=== PATIENT | female | born 2000 | race Caucasian/White ===

== ENCOUNTER 2020-09-10 02:33 | Emergency (ER) | payer OTHER, SELFPAY ==
--- NOTE | ~2020-09-10 | XR_ITS ---
EXAMINATION: XR shoulder LT min 2V DATE: 09/10/2020 03:12 INDICATION: Shoulder pain after pushing boxes. TECHNIQUE: AP internally and externally rotated, AP oblique externally rotated and transscapular Y vi ews of the left shoulder were obtained. COMPARISON: None FINDINGS: Normal alignment. No fracture. Glenohumeral joint is normal. Acromioclavicular joint is normal. Soft tissues are unremarkable. IMPRESSION: Negative left shoulder radiographs. Reviewed, dictated and finalized at location A. CONDITIONING COIL ASSEMBLER
--- NOTE | ~2020-09-10 | XR_ITS ---
EXAMINATION: XR thoracic spine 3V DATE: 09/10/2020 03:12 INDICATION: Back pain after pushing a box. TECHNIQUE: One AP, lateral and lateral swimmer's views of the thoracic spine were obtained. COMPARISON: 04/02/2011 FINDINGS: 20 degrees thoracic dextroscoliosis measured between T2 and T11. Partially visualized lumbar levoroto scoliosis. Vertebral body heights are normal. Mild disc height loss at a few levels in the midthoraci c spine. Lungs are clear. No pulmonary edema, pleural effusion or pneumothorax. Cardiomediastinal keny houette is normal. IMPRESSION: 1. Mild S-shaped thoracolumbar scoliosis with minimal midthoracic spondylosis. Reviewed, dictated and finalized at location A. ICAL SECURITY SPECIALIST
[2020-09-10 02:42] VITALS: BP 108/73; PULSE 59; RESP 18; TEMP 36.7; O2SAT 100
--- NOTE | 2020-09-10 03:21 | ED.GENADULT ---
HPI - General Adult General Chief complaint: Back Pain/Injury Stated complaint: back injury Time Seen by Provider: 09/10/20 02:39 History of Present Illness HPI narrative: Patient is a 20-year-old female who presents the emergency department with chief complaint of the left shoulder and back pain. Patient reports that she was at work and was pushing a box when suddenly she felt a strain in her left shoulder and then felt a spasm in her thoracic area of her back on the left side. Patient states the pain is sharp states is worse with movement and improved with rest. Patient denies numbness or tingling denies focal neurological deficit reports that she took 600 mg of ibuprofen prior to arrival. Related Data Allergies Allergy/AdvReac Type Severity Reaction Status Date / Time hydromorphone Allergy Unknown Hives Verified 09/10/20 02:45 latex Allergy Unknown Hives Verified 09/10/20 02:44 Review of Systems Review of Systems: Narrative: A 10 system review of systems was completed on the patient and is negative except for what is stated in the HPI. Nursing and ancillary documentation was reviewed. PMFSH Family History Family History Grandparent Depression Family history of glaucoma Hypertension Family history of elevated blood lipids Family history of cardiovascular disease Mother Family history of bipolar disorder Social History Social History Smoking status: Never smoker Second hand tobacco smoke exposure: No Alcohol intake: never Gender identity (if verbalized by the patient): Female Comments Patient reports no significant past medical history Exam Narrative: Exam Narrative: GENERAL: Well-appearing, well-nourished, and in no acute distress. HEAD: Normocephalic, atraumatic. EYES: PERRLA and EOMI. ENT: Nares clear, no rhinorrhea or epistaxis. Mucous membranes moist. NECK: Supple. CHEST: Clear to auscultation. No respiratory distress. HEART: Regular rate and rhythm. No murmur heard. Normal peripheral pulses. ABDOMEN: Soft, nontender, nondistended, normal active bowel sounds. EXTREMITIES: Normal range of motion. No edema. SKIN: Warm, dry, no rash. NEURO: No focal deficits. Alert and oriented x3. PSYCH: Normal mood and affect. Back: There is tenderness to palpation in the thoracic paraspinous muscles at the level of the scapula Course Course Emergency Course: Plain film x-rays of the left shoulder and thoracic spine showed no evidence of fracture. Vital Signs Vital signs: Vital Signs Temperature 36.7 C 09/10/20 02:42 Pulse Rate 59 L 09/10/20 02:42 Respiratory Rate 18 09/10/20 02:42 Blood Pressure 108/73 09/10/20 02:42 Pulse Oximetry 100 09/10/20 02:42 Temperature 36.7 C 09/10/20 02:42 Pulse Rate 59 L 09/10/20 02:42 Respiratory Rate 18 09/10/20 02:42 Blood Pressure 108/73 09/10/20 02:42 Pulse Oximetry 100 09/10/20 02:42 Medical Decision Making Vital Signs Vital Signs: Vital Signs Temperature 36.7 C 09/10/20 02:42 Pulse Rate 59 L 09/10/20 02:42 Respiratory Rate 18 09/10/20 02:42 Blood Pressure 108/73 09/10/20 02:42 Pulse Oximetry 100 09/10/20 02:42 Temperature 36.7 C 09/10/20 02:42 Pulse Rate 59 L 09/10/20 02:42 Respiratory Rate 18 09/10/20 02:42 Blood Pressure 108/73 09/10/20 02:42 Pulse Oximetry 100 09/10/20 02:42 Discharge Plan Discharge Clinical Impression: Acute thoracic myofascial strain Qualifiers: Encounter type: initial encounter Qualified Code(s): S29.019A - Strain of muscle and tendon of unspecified wall of thorax, initial encounter Left shoulder strain Qualifiers: Encounter type: initial encounter Qualified Code(s): S46.912A - Strain of unspecified muscle, fascia and tendon at shoulder and upper arm level, left arm, initial encounter Patient Disposition: Home, Self-Care Con
[2020-09-10] MEDS: CYCLOBENZAPRINE HCL 10 MG TABLET PO (03:37)
[2020-09-10 03:41] VITALS: BP 105/76; PULSE 68; RESP 18; TEMP 36.3; O2SAT 99
== END 2020-09-10 03:43 | disposition home or self-care (01) ==
PROVIDERS: Emergency Provider Emergency Medicine
DX: S29.012A Strain of muscle and tendon of back wall of thorax, initial encounter (principal); X50.0XXA Overexertion from strenuous movement or load, initial encounter; S46.912A Strain of unspecified muscle, fascia and tendon at shoulder and upper arm level, left arm, initial encounter
CPT/HCPCS: 72072; 73030; 99284; A9270

== ENCOUNTER 2022-07-27 18:34 | Emergency (ER) | payer SELFPAY ==
--- NOTE | ~2022-07-27 | XR_ITS ---
EXAMINATION: XR knee RT min 4V DATE: 07/27/2022 19:06 INDICATION: Right knee pain TECHNIQUE: Five views of the right knee were obtained. COMPARISON: 01/17/2019 FINDINGS: Alignment is normal. No fracture or osteochondral lesion. Joint spaces are normal with no e rosions. No joint effusion/synovitis. Soft tissues are unremarkable. IMPRESSION: 1. No acute osseous abnormality. Reviewed, dictated and finalized at location F. CER OPERATOR
[2022-07-27 18:38] VITALS: BP 129/77; PULSE 104; RESP 14; TEMP 36.7; O2SAT 100
--- NOTE | 2022-07-27 18:38 | ED.LOWEXIN ---
HPI - Extremity Injury (Lower) General Chief Complaint: Extremity Injury, Lower Stated Complaint: Right Knee Injury Time Seen by Provider: 07/27/22 18:38 Source: patient and RN notes reviewed History of Present Illness HPI Narrative: Patient is a 22-year-old female who presents to the Urgent Care with complaints of right knee pain. Patient states that she had it on a car frame a working on a car on Wednesday. Patient states that is more painful to bear weight or flex the knee. Patient has been using ibuprofen, heat, ice and Tylenol. No other acute complaints. No acute distress noted. Patient aware of the plan of care. Some parts of this dictation were generated by voice recognition software and may contain typographical and/or grammatical inaccuracies. Related Data Home Medications Medication Instructions Recorded Confirmed No Home Medications 07/27/22 07/27/22 Allergies Allergy/AdvReac Type Severity Reaction Status Date / Time hydromorphone Allergy Unknown Hives Verified 07/27/22 19:09 latex Allergy Unknown Hives Verified 07/27/22 19:09 Review of Systems Review of Systems: CONSTITUTIONAL: Denies fever, chills, or sweats. EYES: Denies visual changes, redness, or discharge. ENT: Denies rhinorrhea, congestion, sore throat, or otalgia. CARDIOVASCULAR: Denies chest pain, palpitations, or edema. RESPIRATORY: Denies cough or dyspnea. GASTROINTESTINAL: Denies abdominal pain, nausea, vomiting, or diarrhea. GENITOURINARY: Denies dysuria or hematuria. SKIN: Denies rash or itching. MUSCULOSKELETAL: Reports of right knee pain NEUROLOGIC: Denies headache, numbness, or weakness. All other systems reviewed are negative, except as documented in HPI. [facility] Family History Family History Grandparent Depression Family history of glaucoma Hypertension Family history of elevated blood lipids Family history of cardiovascular disease Mother Family history of bipolar disorder Social History Social History Smoking status: Never smoker Second hand tobacco smoke exposure: No Alcohol intake: never Gender identity (if verbalized by the patient): Female Comments At the time of my signature, I reviewed and agree with the nursing past medical, surgical, social, and family history. There is no relevant family history pertinent to the patient complaint. Exam Narrative: GENERAL: This is a well-nourished, well-developed patient, in no apparent distress. HEAD: normocephalic, atraumatic. EYES: PERRL. Sclera clear/white. Vision is grossly intact. EARS: External ears normal NOSE: External nose normal with no obvious nasal discharge, nares without redness, no rhinorrhea. THROAT: Mucous membranes moist NECK: Neck supple SKIN: warm, intact with no suspicious lesions or rash, good texture and turgor. NEURO: awake, alert, and oriented to person, place and time. There were no obvious focal neurologic abnormalities. EXTREMITIES: range of motion the right lower extremity within normal limits due to pain. Mild posterior knee pain with moderate anterior knee tenderness with palpation. No obvious edema, ecchymosis or erythema to the right knee. Positive strong right pedal pulse with capillary refill less than 2 seconds. Course Course Level of Care: Express Care Visit Vital Signs Vital signs: Vital Signs Temperature 98.0 F 07/27/22 18:38 Pulse Rate 104 H 07/27/22 18:38 Respiratory Rate 14 07/27/22 18:38 Blood Pressure 129/77 07/27/22 18:38 Pulse Oximetry 100 07/27/22 18:38 Oxygen Delivery Room Air 07/27/22 18:38 Temperature 98.0 F 07/27/22 18:38 Pulse Rate 104 H 07/27/22 18:38 Respiratory Rate 14 07/27/22 18:38 Blood Pressure 129/77 07/27/22 18:38 Pulse Oximetry 100 07/27/22 18:38 Oxygen Delivery Room Air 07/27/22 18:38 Reviewed MDM - Extremity Injur
== END 2022-07-27 19:27 | disposition home or self-care (01) ==
PROVIDERS: Emergency Provider Nurse Practitioner Family
DX: S80.01XA Contusion of right knee, initial encounter (principal); W22.8XXA Striking against or struck by other objects, initial encounter; M41.9 Scoliosis, unspecified
CPT/HCPCS: 73564; 99213; G0463

== ENCOUNTER 2023-10-26 14:33 | Emergency (ER) | payer BC, SELFPAY ==
--- NOTE | 2023-10-26 14:40 | ED.URI ---
HPI - URI/Sore Throat General Chief Complaint: Upper Respiratory Infection Stated Complaint: Cough;Chest Congestion Time Seen by Provider: 10/26/23 14:54 Source: patient and RN notes reviewed Mode of arrival: ambulatory Limitations: no limitations History of Present Illness HPI Narrative: 23-year-old female presents with concern for cough for 3 weeks. Reports a few days ago she began having sore throat, nasal congestion, postnasal drainage. She reports she has been taking [id number]-[id number] medications without relief. Reports her family members have similar. MD elicited complaint: cough and sore throat Related Data Home Medications Medication Instructions Recorded Confirmed bupropion HCl 150 mg 24 hr tablet, 150 mg PO DAILY 10/26/23 10/26/23 extended release norethindrone 1 mg-e. estradiol 20 1 tablet PO DAILY 10/26/23 10/26/23 mcg (24)-iron 75 mg (4) chew tablet (Liana 24 Fe) Allergies Allergy/AdvReac Type Severity Reaction Status Date / Time hydromorphone Allergy Unknown Hives Verified 10/26/23 14:39 latex Allergy Unknown Hives Verified 10/26/23 14:39 Review of Systems Review of Systems: CONSTITUTIONAL: Denies malaise, chills, sweats, or fever. EYES: Denies visual changes, redness, or discharge. ENT: Reports rhinorrhea, congestion, and sore throat. CARDIOVASCULAR: Denies chest pain, palpitations, or edema. RESPIRATORY: Reports cough. Denies dyspnea. GASTROINTESTINAL: Denies abdominal pain, nausea, vomiting, diarrhea SKIN: Denies rash or itching. MUSCULOSKELETAL: Denies myalgia. NEUROLOGIC: Denies headache. All systems reviewed & are unremarkable except as noted in HPI and below PMFSH Family History Family History Grandparent Depression Family history of glaucoma Hypertension Family history of elevated blood lipids Family history of cardiovascular disease Mother Family history of bipolar disorder Social History Social History Smoking status: Never smoker Second hand tobacco smoke exposure: No Alcohol intake: never Gender identity (if verbalized by the patient): Female Comments At time of signature, agree with nursing past medical, surgical, social and family history. There is no relevant family history pertinent to the presenting complaint Exam Narrative: GENERAL: Well-appearing, well-nourished, and in no acute distress. HEAD: Normocephalic EYES: PERRLA, conjunctivae clear ENT: Nares clear, turbinates edematous and erythematous, clear discharge. Mucous membranes moist. TM pearly waddell with sharp light reflex bilaterally; no tragal tenderness. Oropharynx not erythematous without lesions. Tonsils not enlarged and without exudate, no drooling, no hoarseness, no trismus, uvula midline. NECK: Supple. No lymphadenopathy CHEST: Clear to auscultation, breath sounds equal. No wheezing, rhonchi, rales, or stridor. No respiratory distress, speaks in full sentences. HEART: Regular rate and rhythm. No murmur heard. SKIN: Warm, dry, no rash. NEURO: Alert and oriented x3. PSYCH: Normal mood and affect Course Course Emergency Course: Patient is aware of diagnosis, understands and agrees to treatment plan. Anticipatory guidance given. Patient agrees to follow-up as directed and is aware of reasons to seek care at the emergency department. Portions of this record may have been created with voice recognition software Level of Care: Express Care Visit Vital Signs Vital signs: Reviewed. MDM - URI/Sore Throat MDM Narrative Medical decision making narrative: Differential diagnosis considered: Perry virus, strep pharyngitis, allergic rhinitis, upper respiratory tract infection, sinusitis, rhinosinusitis, nasopharyngitis. viral pharyngitis, otitis media, otitis externa, pneumonia, bronchitis, viral cough syndrome, viral syndrome, and influenza. Exam findings show
[2023-10-26 14:42] VITALS: BP 120/86; PULSE 118; RESP 16; TEMP 36.9; O2SAT 100
[2023-10-26 14:49] VITALS: BP 120/86; PULSE 118; RESP 16; TEMP 36.9; O2SAT 100
== END 2023-10-26 15:05 | disposition home or self-care (01) ==
PROVIDERS: Emergency Provider Nurse Practitioner
DX: J40 Bronchitis, not specified as acute or chronic (principal); Z79.899 Other long term (current) drug therapy; Z20.822 Contact with and (suspected) exposure to COVID-19
CPT/HCPCS: 87081; 87426; 87804; 87880; 99213; G0463

== ENCOUNTER 2024-06-20 12:33 | Emergency (ER) | payer BC, SELFPAY ==
[2024-06-20 12:40] VITALS: BP 129/76; PULSE 109; RESP 16; TEMP 36.6; O2SAT 100
--- NOTE | 2024-06-20 12:45 | ED.LOWEXIN ---
HPI - Extremity Injury (Lower) General Chief Complaint: Extremity Injury, Lower Stated Complaint: Left Foot Injury Source: patient Mode of arrival: ambulatory Limitations: no limitations History of Present Illness HPI Narrative: 24 y/o female presented for c/o left foot pain after injury last night. States she jammed the foot into the wall while playing with her dog, and may have bent the toes backwards. pain is to the 3rd 4th and 5th toes towards the midfoot. Took ibuprofen last night. Denies deformity swelling, bruising, numbness, tingling or weakness. Related Data Home Medications Medication Instructions Recorded Confirmed No Home Medications 06/20/24 06/20/24 Allergies Allergy/AdvReac Type Severity Reaction Status Date / Time hydromorphone Allergy Unknown Hives Verified 06/20/24 12:41 latex Allergy Unknown Hives Verified 06/20/24 12:41 dimenhydrinate Allergy Rash Verified 06/20/24 13:00 [From Dramamine] Review of Systems Review of Systems: CONSTITUTIONAL: Denies body aches, fever, chills CARDIOVASCULAR: Denies chest pain, palpitations, or edema. RESPIRATORY: Denies cough or dyspnea. SKIN: Denies rash, bruising or wounds. MUSCULOSKELETAL: reports left foot pain NEUROLOGIC: Denies headache, numbness, tingling, or weakness. All systems reviewed & are unremarkable except as noted in HPI and below PMFSH Family History Family History Grandparent Depression Family history of glaucoma Hypertension Family history of elevated blood lipids Family history of cardiovascular disease Mother Family history of bipolar disorder Social History Social History Smoking status: Never smoker Second hand tobacco smoke exposure: No Alcohol intake: never Gender identity (if verbalized by the patient): Female Comments At time of signature, I have reviewed and agree with nursing past medical, surgical, social and family history unless otherwise noted. Please see nursing chart for further information. There is no relevant family history pertinent to the presenting complaint Exam Narrative: GENERAL: Well-appearing, well-nourished, and in no acute distress. CHEST: Speaks in full sentences. No respiratory distress. HEART: Regular rate and rhythm. Normal and equal peripheral pulses. EXTREMITIES: Left foot has normal strength and sensation, normal range of motion at ankle and toes, but endorses pain with movement. Tender with palpation over the midfoot. No swelling or ecchymosis, No open wounds, or obvious deformity; alignment normal, pulse palpable and equal bilaterally, skin warm, dry, pink. Capillary refill less than 3 seconds. SKIN: Warm, dry, no rash. NEURO: Alert and oriented x3. Course Course Emergency Course: Patient is aware of diagnosis, understands and agrees to treatment plan. Anticipatory guidance given. Patient agrees to follow-up as directed and is aware of reasons to seek care at the emergency department. Portions of this record may have been created with voice recognition software Level of Care: Express Care Visit Vital Signs Vital signs: Vital Signs Temperature 97.9 F 06/20/24 12:40 Pulse Rate 109 H 06/20/24 12:40 Respiratory Rate 16 06/20/24 12:40 Blood Pressure 129/76 06/20/24 12:40 Pulse Oximetry 100 06/20/24 12:40 Oxygen Delivery Room Air 06/20/24 12:40 Temperature 97.9 F 06/20/24 12:40 Pulse Rate 109 H 06/20/24 12:40 Respiratory Rate 16 06/20/24 12:40 Blood Pressure 129/76 06/20/24 12:40 Pulse Oximetry 100 06/20/24 12:40 Oxygen Delivery Room Air 06/20/24 12:40 Reviewed MDM - Extremity Injury (Lower) MDM Narrative Medical decision making narrative: Discussed physical exam findings and xray. RONALDO applied. Advised supportive measures and signs/symptoms to go to the ER. Pt is appropriate for outpt treatment and
== END 2024-06-20 13:17 | disposition home or self-care (01) ==
PROVIDERS: Emergency Provider Nurse Practitioner Family
DX: M79.672 Pain in left foot (principal)
CPT/HCPCS: 73630; 99213; G0463

== ENCOUNTER 2025-06-08 17:34 | Emergency (ER) | payer SELFPAY ==
--- OUTSIDE RECORDS SUMMARY | 2024-12-09 04:00 | XMS_ITS ---
Author Organization [facility] Address [address] [place] [address] Care Team Providers Care Manager Beauty Name Role Phone Adrián Louise Unavailable [phone] Migration, Provider Unavailable Unavailable REASON FOR VISIT EMR-Luis Encounters Encounter Location Date Provider Diagnosis [facility] [address] [place], [place] [id number] 12/09/2024 Prov ider Migration Plan Of Treatment No Information Progress Notes * VIOLETA DE LA CRUZDOB:2000 ([age] yo F)Acc No.[id number]:12/09/2024 Patient: VIOLETA MILLER :2000 A ge:24 Y S ex:Female Address:[address] [place], [address] Subjective: * Chief Complaints: * E MR-Luis * * Date:
--- OUTSIDE RECORDS SUMMARY | 2024-12-10 04:00 | XMS_ITS ---
Author Organization [facility] Address [address] [place] [address] Care Team Providers Care Marketing Developer Name Role Phone Adirán Louise Unavailable [phone] Migration, Provider Unavailable Unavailable Allergies Allergen (clinical [...] 1-20 MG-MCG(24) Tablet Chewable Oral *Reorder from [employer] for eRx and Interaction Alerts* 08/23/2023 Active [...] 01/05/2023 Encounters Encounter Location Date Provider Diagnosis [facility] [address] [place] [id number] 12/10/2024 Prov ider Migration Plan Of Treatment No Information Progress Notes * VIOLETA DE LA CRUZDOB:2000 ([age] yo F)Acc No.[id number]:12/10/2024 Patient: VIOLETA MILLER :2000 A ge:24 Y S ex:Female Address:[address] [place] [address] [place], [address] Subjective: * Chief Complaints: * E MR-Luis * Medical History: Problems: ultrasound scan status Anxiety Attention deficit hyperactivity disorder Bipolar disorder Depressive disorder Oligohydramnios Polyuria RhD negative * 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
--- OUTSIDE RECORDS SUMMARY | 2025-06-08 17:36 | XMS_ITS | Clinical Summary ---
Author Organization [facility] Address [address] [place] [address] Phone Care Team Providers Care Land Acquisition Manager Name Role Phone Unavailable Primary Care Provider Unavailabl e Allergies Active Allergy Reactions Criticality Noted Date Comments Dimenhydrinate Other (See Comments) 04/05/2023 Vomiting Latex Other (See Comments) High 11/06/2022 Throat closes when pt comes in contact with large amounts of latex. She had her entire leg wrapped with an geneva bandage and her throat closed Medications PNV no.133/ferrous fum/folic ( ORAL) Take by mouth. Active acetaminophen (TYLENOL) 325 mg tablet Take 2 Tablets (650 mg) by mouth every 6 hours as needed for Other (See Comment) (See admin instructions ). 30 Tablet 05/22/2023 Active ibuprofen (MOTRIN) 600 mg tablet Take 1 Tablet (600 mg) by mouth every 6 hours. 30 Tablet 05/22/2023 Active omeprazole (PriLOSEC) 40 mg Capsule, Delayed Release(E.C.) Take 1 Capsule (40 mg) by mouth daily. 30 Capsule 06/20/2023 Active Active Problems Problem Noted Date Diagnosed Date Encounter for elective induction of labor 2022 Decreased movements in third trimester Nausea and vomiting in 11/07/2022 Immunizations Immunization Administration Dates Next Due (ADACEL/BOOSTRIX)(10 YR UP) TDAP VACCINE, 0.5ML, IM 04/01/2011 (GARDASIL)(9-45 YRS) HUMAN PAPILLOMAVIRUS VACCINE, TYPES 6, 11, 16, 18, QUADRIVALENT (4VHPV), 3 DOSE, IM 11/02/2012,04/11/2012,04/01/2011 (INFANRIX)(6 WKS-6 YRS) DIPT HERIA, TETANUS TOXOIDS, AND ACCELLULAR PERTUSSIS VACCINE (DTAP), 0.5 ML IM 02/16/2005,09/09/2001,2000,05/07,2000 (IPOL)(6 WKS AND UP) POLIOVI LEILANI VACCINE, INACTIVATED (IPV), 3 DOSE, SUBCUT OR IM 02/16/2005,09/09/2001,2000,05/07 (M-M-R II/PRIORIX)(12 MO UP) MEASLES, MUMPS AND RUBELLA VIRUS VACCINE, 0.5 ML IM/SUBCUT 02/16/2005,06/07/2001 (MENACTRA)(9 MO-55 YR) MENIN GOCOCCAL POLYSACCHARIDE A, C, Y AND W-135 DIPTHERIA TOXOID CONJUGATE VACCINE, (PF), 0.5ML, IM 04/01/2011 (PEDVAXHIB)(2 - 71 MOS) HIB PRP-OMP VACCINE, 3 DOSE, 0.5 ML IM0] 09/09/2001,2000,2000,05/07 (RECOMBIVAX HB/ENGERIX-B)(0- 19 YRS) HEPATITIS B VACCINE 5 MCG/0.5 ML OR 10 MCG/0.5 ML PED OR ADOL 3 DOSE (PF), IM 03/02/2001,2000,2000 (VARIVAX)(12 MOS UP)VARICELL A VIRUS VACCINE (PF) 0.5 ML, SUB CUT 04/01/2011,06/07/2001 Hepatitis A Vaccine 04/11/2012,04/01/2011 Influenza, Unspecified Formulation 06/25/2013 Pneumococcal 7-valent conjug ate vaccine IM 09/09/2001,2000,2000,05/07 Family History Medical History Relation Name Comments Healthy Father Thyroid Disease Maternal Grandmother Healthy Mother Stroke Paternal Grandfather Relation Name Status Comments Father Alive Maternal Grandmother Mother Alive Paternal Grandfather Alive Social History Tobacco Use Types Packs/Day Years Used Date Smoking Tobacco: Never Smokeless Tobacco: Never Tobacco Cessation:Counseling Given: No Alcohol Use Standard Drinks/Week Comments Not Currently 0 (1 standard drink = 0.6 oz pur e alcohol) Feeling Safe Answer Date Recorded Are you in a relationship wi th someone who hurts you emotionally and/or physically? No 06/20/2023 Comments No Sex and Gender Information Value Date Recorded Sex Assigned at Not on file Legal Sex Female 5:14 PM CDT Gender Identity Not on file Sexual Orientation Not on file Last Filed Vital Signs Vital Sign Reading Time Taken Comments Blood Pressure 133/78 06/20/2023 11:30 PM CDT Pulse 95 06/20/2023 11:30 PM CDT Temperature 36.7 C (98 F) 06/20/2023 9:21 PM CDT Respiratory Rate 18 06/20/2023 11:30 PM CDT Oxygen Saturation 96% 06/20/2023 11:30 PM CDT Inhaled Oxygen Concentration - - Weight 61.2 kg (135 lb) 06/20/2023 9:21 PM CDT Height 176.5 cm (5' 9.5) 06/20/2023 9:21 PM CDT Body Mass Index 19.65 06/20/2023 9:21 PM CDT Plan of Treatment Health Maintenance Due Date Last Done Comments CERVICAL CANCER SCREENING 2021 HPV/Cotest (21-29) 2021 PAP SMEAR 2021 DTAP/TDAP/TD VACCINES (6 - T d or Tdap) 04/01/2021 04/01/2011, 02/16/2005, 09/09/2001, Additional history exists INFLUENZA VACCINE (#1) 2025 HEPATITIS B VACCINES Completed 03/02/2001, 2000, 2000 HPV VACCINES Completed 11/02/2012, 03/15, 04/01/2011 Advance Directives For more information, please contact: [phone] * Full Code (Latest Code Status on File) Date Activated Date Inactivated Comments 05/21/2023 4:42 PM 05/23/2023 1:48 PM * Full Code Date Activated Date Inactivated Comments 05/20/2023 7:36 PM 05/21/2023 4:42 PM * Full Code Date Activated Date Inactivated Comments 04/05/2023 9:03 PM 04/06/2023 2:08 PM * Full Code Date Activated Date Inactivated Comments 04/05/2023 2:06 PM 04/05/2023 9:02 PM * Full Code Date Activated Date Inactivated Comments 11/06/2022 10:45 PM 11/07/2022 4:41 AM
--- OUTSIDE RECORDS SUMMARY | 2025-06-08 17:36 | XMS_ITS | Patient Health Record ---
Author Organization [facility] Address [address] [place] [address] Care Team Providers Care Software Development Analyst Name Role Phone Adrián Louise Unavailable [phone] Migration, Provider Unavailable Unavailable Reason For Referral No Information Medications Medication SIG (Take, Route, Frequency, Duration) Notes Start Date End Date Status Ibuprofen 600 MG Tablet Oral 08/23/2023 Active Acetaminophen 325 MG Tablet Oral 08/23/2023 Active Liana 24 Fe 1-20 MG-MCG(24) Tablet Chewable Oral 08/23/2023 Active Minastrin 24 Fe 1-20 MG-MCG(24) Tablet Chewable Oral *Reorder from [employer] for eRx and Interaction Alerts* 08/23/2023 Active buPROPion HCl ER (XL) 150 MG Tablet Extended Release 24 Hour Oral 08/23/2023 Active RhoGAM Ultra-Filtered Plus 1500 UNIT Solution Prefilled Syringe Intramuscular 08/23/2023 Active Progesterone 200 MG Capsule Oral 08/23/2023 Active Prenatabs Rx 29-1 MG Tablet Oral 08/23/2023 Active Ondansetron 4 MG Tablet Disintegrating Oral 08/23/2023 Active Immunizations Vaccine Route Administration Date Status Comme nts Tdap Unknown 03/29/2023 Administered Source VFC Code: V00 - VFC eligibility not determined/unknown Social History Social History Additional Details Category Social Info Options Details Migrated Social History Migrated Social History Alcohol Intake: None 01/05/2023,Tobacco Years: Never smoker 01/05/2023 Problems Problem Type SNOMED Code ICD Code Onset Dates Problem Status W/U Status Risk Notes Problem Thyrotoxicosis (18358306) Thyrotoxicosis, unspecified without thyrotoxic crisis or storm (E05.90) 05/10/20 Active confirmed Problem Anxiety disorder (047717389) Other specified anxiety disorders (F41.8) 08/23/20 Active confirmed Problem Anxiety disorder (599781716) Anxiety disorder, unspecified (F41.9) 05/10/20 Active confirmed Problem Scoliosis (794833662) Scoliosis, unspecified (M41.9) 01/07/20 Active confirmed Problem Oligohydramnios, third trimester, not applicable or unspecified (O41.03X0) 05/10/20 Active confirmed Problem Blood group typing (11111257) Encounter for blood typing (Z01.83) 05/10/20 Active confirmed Problem Normal growth (250120742) Encounter for suspected problem with growth ruled out (Z03.74) 04/26/20 Active confirmed Problem Vaccination given (747988805) Encounter for immunization (Z23) 03/29/20 Active confirmed Problem Surveillance of contraception (249035559) Encounter for contraceptive management, unspecified (Z30.9) 06/30/20 Active confirmed Problem Patient currently (18559233) state, incidental (Z33.1) 05/07/20 Active confirmed Problem Primigravida (766664315) Encounter for supervision of normal first , second trimester (Z34.02) 02/04/20 Active confirmed Problem state of fetus, 2nd trimester (04964383) Encounter for supervision of normal , unspecified, second trimester (Z34.92) 05/10/20 Active confirmed Problem Gestation period, 32 weeks (0838173) 32 weeks gestation of (Z3A.32) 03/29/20 Active confirmed Problem Gestation period, 37 weeks (10728653) 37 weeks gestation of (Z3A.37) 05/10/20 Active confirmed Problem screening (341820006) Encounter for screening, unspecified (Z36.9) 02/04/20 Active confirmed Encounters Encounter Location Date Provider Diagnosis [facility] [address] [place], [place] [id number] 12/09/2024 Prov ider Migration [facility] [address] [facility] [place] [id number] 12/10/2024 Prov ider Migration Plan Of Treatment No Information Insurance Providers Payer Name Payer Address Payer Phone Subscriber Number Group Number Insured Name Patient Relationship to Insured Coverage Start Date Coverage End Date Luz CARDENAS [address] [place] [address] [id number] KRISTI DE LA CRUZ Child - Insured has Financial Responsibility
[2025-06-08 18:10] VITALS: BP 106/68; PULSE 91; RESP 16; TEMP 36.7; O2SAT 99
--- NOTE | 2025-06-08 18:42 | ED_ITS ---
HPI - Female Genitourinary General Chief complaint: Vaginal Bleeding <Vilma Pardo PA-C - Last Filed: 06/11/25 10:16> Stated complaint: vaginal spotting, cramping 8 weeks <Vilma Pardo PA-C - Last Filed: 06/11/25 10:16> Time Seen by Provider: 06/08/25 18:42 <Vilma Pardo PA-C - Last Filed: 06/11/25 10:16> Focused HPI: This is a 25 year old female that presents to the ER for vaginal spotting. Ongoing since last night. Reports she is about 8 weeks . She has had an ultrasound this which showed intra-uterine . She is seen at [facility] in [place]. GENERAL: Well-appearing, well-nourished, and in no acute distress. HEAD: Normocephalic, atraumatic. CHEST: Clear to auscultation. ?No respiratory distress. HEART: Regular rate and rhythm.? NEURO: ?Alert and oriented x3. Patient screened in triage and initial orders placed.? ?Additional care and disposition to be based upon?diagnostic testing and treatment. <Vilma Pardo PA-C - Last Filed: 06/11/25 10:16> History of Present Illness HPI Narrative: Agree with HPI. <Ryan Green MD - Last Filed: 06/08/25 21:55> Related Data Home medications: Home Medications ?Medication ?Instructions ?Recorded ?Confirmed ?Last Taken ?Type No Home Medications 06/20/24 06/20/24 U nknown History <Vilma Pardo PA-C - Last Filed: 06/11/25 10:16> Allergies/Adverse reactions: Allergies Allergy/AdvReac Type Severity Reaction Status Date / Time hydromorphone Allergy Unknown Hives Verified 06/08/25 18:11 latex Allergy Unknown Hives Verified 06/08/25 18:11 dimenhydrinate (From Allergy Rash Verified 06/08/25 18:11 Dramamine) <Vilma Pardo PA-C - Last Filed: 06/11/25 10:16> Review of Systems 2 Review of Systems: All systems reviewed & are unremarkable except as noted in HPI and below <Ryan Green MD - Last Filed: 06/08/25 21:55> Constitutional: Constitutional: Reports no additional constitutional complaints <Ryan Green MD - Last Filed: 06/08/25 21:55> Cardiovascular: Cardiovascular: Reports no additional cardiovascular complaints <Ryan Green MD - Last Filed: 06/08/25 21:55> Respiratory: Respiratory: Reports no additional respiratory complaints < Ryan Green MD - Last Filed: 06/08/25 21:55> Gastrointestinal: Gastrointestinal: Reports no additional gastrointestinal complaints <Ryan Green MD - Last Filed: 06/08/25 21:55> Genitourinary: Genitourinary: Reports no additional female genitourinary complaints <Ryan Green MD - Last Filed: 06/08/25 21:55> PMFSH Past Medical History Medical History: Medical History (Updated 06/09/25 @ 00:01 by Matias Mercado) Bipolar 1 disorder, mixed Anxiety <Vilma Pardo PA-C - Last Filed: 06/11/25 10:16> Family History Family History: Family History Grandparent Depression Family history of glaucoma Hypertension Family history of elevated blood lipids Family history of cardiovascular disease Mother Family history of bipolar disorder <Vilma Pardo PA-C - Last Filed: 06/11/25 10:16> Social History Social History: Social History Smoking status: Never smoker Second hand tobacco smoke exposure: No Alcohol intake: never Gender identity (if verbalized by the patient): Female <Vilma Pardo PA-C - Last Filed: 06/11/25 10:16> Exam 2 Narrative: GENERAL: Well-appearing, well-nourished, and in no acute distress. HEAD: Normocephalic, atraumatic. ENT: Mucous membranes moist. CHEST: Clear to auscultation. No respiratory distress. HEART: Regular rate and rhythm. Normal peripheral pulses. ABDOMEN: Soft, nontender, nondistended. : Normal appearing external genitalia. Mild amount of white discharge within the vagina. Cervix closed with non friable cervix. No bleeding. EXTREMITIES: Normal range of motion. No edema. NEURO: Alert and oriented x3. PSYCH: Normal mood and affect. <Ryan Green MD - Last Filed: 06/08/25 21:55> Course Course Emergency Course: Patient is A negative, she received prophylactic Rhogam. Bedside ultrasound shows an IUP with active movement. Unable to visualize heart be due to overlying bowel gas and artifact. Discussed case with Dr. Barton. Patient can present to clinic at 9:00 a.m. and she will be seen. Discussed possibility of subchorionic hemorrhage that was undiagnosed as well as threatened miscarriage. Patient verbalized understanding. Discussed bleeding precautions. Discharged. <Vilma Pardo PA-C - Last Filed: 06/11/25 10:16> Patient is A negative, she received prophylactic. Bedside ultrasound shows an IUP with active movement. Unable to visualize heart be due to overlying bowel gas an artifact. Discussed case with Dr. Barton. Patient can sharp to clinic at 9:00 a.m. and she will be seen. Discussed possibility of subchorionic hemorrhage that was undiagnosed as well as threatened miscarriage. Patient verbalized understanding. Discussed bleeding precautions. Discharge. < Ryan Green MD - Last Filed: 06/08/25 21:55> Vital Signs Vital signs: Vital Signs Temperature 98.0 F 06/08/25 18:10 Pulse Rate 91 06/08/25 18:10 Respiratory Rate 16 06/08/25 18:10 Blood Pressure 106/68 06/08/25 18:10 Pulse Oximetry 99 06/08/25 18:10 Temperature 98.0 F 06/08/25 18:10 Pulse Rate 95 06/08/25 22:10 Respiratory Rate 18 06/08/25 22:10 Blood Pressure 120/74 06/08/25 22:10 Pulse Oximetry 98 06/08/25 22:10 <Vilma Pardo PA-C - Last Filed: 06/11/25 10:16> Vital Signs Temperature 98.0 F 06/08/25 18:10 Pulse Rate 91 06/08/25 18:10 Respiratory Rate 16 06/08/25 18:10 Blood Pressure 106/68 06/08/25 18:10 Pulse Oximetry 99 06/08/25 18:10 Temperature 98.0 F 06/08/25 18:10 Pulse Rate 95 06/08/25 22:10 Respiratory Rate 18 06/08/25 22:10 Blood Pressure 120/74 06/08/25 22:10 Pulse Oximetry 98 06/08/25 22:10 <Ryan Green MD - Last Filed: 06/08/25 21:55> MDM - Female Genitourinary Lab Data Result diagrams: 06/08/25 19:49 06/08/25 19:49 <Vilma Pardo PA-C - Last Filed: 06/11/25 10:16> Labs: Lab Results 06/08/25 Range/Units 19:49 WBC 4.7 (4.5-10.0) K/mm3 RBC 4.50 (4.2-5.4) M/mm3 Hgb 12.0 (12.0-15.0) g/dL Hct 36.8 L (37.0-47.0) % MCV 81.8 (80-100) fl MCH 26.7 (26-34) pg MCHC 32.6 (32-36) g/dl RDW 12.5 (11.5-14.5) % Plt Count 240 (150-375) k/mm3 MPV 10.0 (7.4-10.4) fl Immature Gran % (Auto) 0.2 (0-0.5) % Neut % (Auto) 55.7 (45.5-73.1) % Lymph % (Auto) 31.8 (18.3-44.2) % Hartley % (Auto) 11.7 H (2.6-8.5) % Eos % (Auto) 0.4 (0-4.4) % Baso % (Auto) 0.2 (0.2-1.2) % Lymph # (Auto) 1.49 (0.9-3.2) K/mm3 Hartley # (Auto) 0.6 (0.1-0.6) K/mm3 Eos # (Auto) 0.0 (0-0.3) K/mm3 Baso # (Auto) 0.0 (0.0-0.1) K/mm3 Abs Immat Gran (auto) 0.01 (0.00-0.031) K/mm3 Absolute Neuts (auto) 2.6 (1.3-6.7) K/mm3 Absolute Nucleated RBC 0.000 (0.0-0.012) K/mm3 Nucleated RBC % 0.0 (0.0-0.2) % PT 13.4 (11.1-14.7) Seconds INR 1.0 APTT 27.1 (22.3-36.8) Seconds Sodium 132 L (137-145) mmol/L Potassium 4.1 (3.4-5.0) mmol/L Chloride 101 (98-107) mmol/L Carbon Dioxide 25 (22-30) mmol/L Anion Gap 6 (4-12) mmol/L BUN 13 (7-17) mg/dL Creatinine 0.47 L (0.7-1.0) mg/dL Estim Creat Clear Calc 141 ml/min Estimated GFR > 60 (59 - ) Glucose 111 H (65-110) mg/dL Calcium 9.1 (8.4-10.2) mg/dL Total Bilirubin 0.3 (0.2-1.3) mg/dL AST 25 (14-36) U/L ALT 30 (6-35) U/L Alkaline Phosphatase 89 (38-126) U/L Total Protein 6.7 (6.3-8.2) g/dL Albumin 3.9 (3.5-5.1) g/dL Beta HCG, Quant 470746.00 mIU/ML Blood Type A Negative Antibody Screen Negative Screen Not Reportable Baby's Blood Type Not Reportable Baby's GALDINO Not Reportable Doses of RhIg Required 1 <Vilma Pardo PA-C - Last Filed: 06/11/25 10:16> Lab Results 06/08/25 Range/Units 19:49 WBC 4.7 (4.5-10.0) K/mm3 RBC 4.50 (4.2-5.4) M/mm3 Hgb 12.0 (12.0-15.0) g/dL Hct 36.8 L (37.0-47.0) % MCV 81.8 (80-100) fl MCH 26.7 (26-34) pg MCHC 32.6 (32-36) g/dl RDW 12.5 (11.5-14.5) % Plt Count 240 (150-375) k/mm3 MPV 10.0 (7.4-10.4) fl Immature Gran % (Auto) 0.2 (0-0.5) % Neut % (Auto) 55.7 (45.5-73.1) % Lymph % (Auto) 31.8 (18.3-44.2) % Hartley % (Auto) 11.7 H (2.6-8.5) % Eos % (Auto) 0.4 (0-4.4) % Baso % (Auto) 0.2 (0.2-1.2) % Lymph # (Auto) 1.49 (0.9-3.2) K/mm3 Hartley # (Auto) 0.6 (0.1-0.6) K/mm3 Eos # (Auto) 0.0 (0-0.3) K/mm3 Baso # (Auto) 0.0 (0.0-0.1) K/mm3 Abs Immat Gran (auto) 0.01 (0.00-0.031) K/mm3 Absolute Neuts (auto) 2.6 (1.3-6.7) K/mm3 Absolute Nucleated RBC 0.000 (0.0-0.012) K/mm3 Nucleated RBC % 0.0 (0.0-0.2) % PT 13.4 (11.1-14.7) Seconds INR 1.0 APTT 27.1 (22.3-36.8) Seconds Sodium 132 L (137-145) mmol/L Potassium 4.1 (3.4-5.0) mmol/L Chloride 101 (98-107) mmol/L Carbon Dioxide 25 (22-30) mmol/L Anion Gap 6 (4-12) mmol/L BUN 13 (7-17) mg/dL Creatinine 0.47 L (0.7-1.0) mg/dL Estim Creat Clear Calc 141 ml/min Estimated GFR > 60 (59 - ) Glucose 111 H (65-110) mg/dL Calcium 9.1 (8.4-10.2) mg/dL Total Bilirubin 0.3 (0.2-1.3) mg/dL AST 25 (14-36) U/L ALT 30 (6-35) U/L Alkaline Phosphatase 89 (38-126) U/L Total Protein 6.7 (6.3-8.2) g/dL Albumin 3.9 (3.5-5.1) g/dL Beta HCG, Quant 038597.00 mIU/ML Blood Type A Negative Antibody Screen Negative Screen Not Reportable Baby's Blood Type Not Reportable Baby's GALDINO Not Reportable Doses of RhIg Required 1 <Ryan Green MD - Last Filed: 06/08/25 21:55> Critical Care Time Critical Care Time Critical Care Time: No <Vilma Pardo PA-C - Last Filed: 06/11/25 10:16> Discharge Plan Discharge Clinical Impression: Threatened <Vilma Pardo PA-C - Last Filed: 06/11/25 10:16> Patient Disposition: Home <Vilma Pardo PA-C - Last Filed: 06/11/25 10:16> Condition: Stable <Vilma Pardo PA-C - Last Filed: 06/11/25 10:16> Instructions: Threatened Miscarriage (ED) <Vilma Pardo PA-C - Last Filed: 06/11/25 10:16> Additional Instructions: Show up at Dr. Bach office at 9:00 a.m. and they will get you in for an evaluation. Return the ER if you have worsening bleeding, have severe lower abdominal pain, or you have additional concerns. <Vilma Pardo PA-C - Last Filed: 06/11/25 10:16> Patient Language: Surinamese <Vilma Pardo PA-C - Last Filed: 06/11/25 10:16> Prescriptions: No Action No Home Medications <Vilma Pardo PA-C - Last Filed: 06/11/25 10:16> Follow-up/Referrals: Donato Barton MD [Physician, [employer]ORDUR[employer] CUTTING SUPERVISOR] - 3 Days PHYSICIAN,B[employer] SQUAD COMMANDER [Primary Care Provider, Internal Medicine] <Vilma Pardo PA-C - Last Filed: 06/11/25 10:16>
[2025-06-08 19:58] LABS: Hematocrit 36.8 % (37.0-47.0); Hemoglobin 12.0 g/dL (12.0-15.0); Immature Granulocyte Percent A 0.2 % (0-0.5); Lymphocytes Absolute Auto 1.49 K/mm3 (0.9-3.2); Mean Corpuscular HGB Conc 32.6 g/dl (32-36); Mean Corpuscular Hemoglobin 26.7 pg (26-34); Mean Corpuscular Volume 81.8 fl (80-100); Nucleated Red Blood Cells Absolute Auto 0.000 K/mm3 (0.0-0.012); Nucleated Red Blood Cells Perc 0.0 % (0.0-0.2); Platelet Count Result 240 k/mm3 (150-375); Red Blood Count 4.50 M/mm3 (4.2-5.4); White Blood Count 4.7 K/mm3 (4.5-10.0)
[2025-06-08 20:10] LABS: INR 1.0; Prothrombin Time 13.4 Seconds (11.1-14.7)
[2025-06-08 20:12] LABS: Alanine Aminotransferase 30 U/L (6-35); Albumin Level 3.9 g/dL (3.5-5.1); Alkaline Phosphatase 89 U/L (38-126); Anion Gap 6 mmol/L (4-12); Aspartate Amino Transferase 25 U/L (14-36); Bilirubin,Total 0.3 mg/dL (0.2-1.3); Blood Urea Nitrogen 13 mg/dL (7-17); Calcium 9.1 mg/dL (8.4-10.2); Carbon Dioxide 25 mmol/L (22-30); Chloride 101 mmol/L (98-107); Estimated CRCL calculation 141 ml/min; Estimated Glomerular Filt Rate > 60; Glucose 111 mg/dL (65-110); Partial Thromboplastin Time 27.1 Seconds (22.3-36.8); Potassium 4.1 mmol/L (3.4-5.0); Sodium 132 mmol/L (137-145); Total Protein 6.7 g/dL (6.3-8.2)
--- OUTSIDE RECORDS SUMMARY | 2025-06-08 20:16 | XMS_ITS | Clinical Summary ---
Author Organization [facility] Address [address] [place] [address] Phone Care Team Providers Care Dry Box Operator Name Role Phone Unavailable Primary Care Provider [...] Advance Directives For more information, please contact: [phone] * Full Code (Latest Code Status on [...]
[2025-06-08 20:51] LABS: Beta HCG Quantitative 101040.00 mIU/ML
[2025-06-08] MEDS: RHO(D) IMMUNE GLOBULIN 300 MCG/2 ML SYRINGE IM (21:21)
[2025-06-08 22:10] VITALS: BP 120/74; PULSE 95; RESP 18; O2SAT 98
== END 2025-06-08 22:07 | disposition home or self-care (01) ==
PROVIDERS: Physician Assistant; Emergency Provider Emergency Medicine
DX: O20.0 Threatened abortion (principal); Z3A.08 8 weeks gestation of pregnancy
CPT/HCPCS: 36415; 80053; 84702; 85025; 85461; 85610; 85730; 86850; 86900; 86901; 90384; 96372; 99284; J2790

== ENCOUNTER 2025-07-29 22:32 | Emergency (ER) | payer MEDICAID, SELFPAY ==
--- OUTSIDE RECORDS SUMMARY | 2024-12-09 03:00 | XMS_ITS ---
Author Organization [facility] Address [address] [place] [address] Care Team Providers Care Automotive Airconditioning Mechanic Name Role Phone Adrián Louise Unavailable [phone] Migration, Provider Unavailable Unavailable REASON FOR VISIT EMR-Luis Encounters Encounter Location Date Provider Diagnosis [facility] [address] [place], [place] [id number] 12/09/2024 Prov ider Migration Plan Of Treatment No Information Progress Notes * VIOLETA DE LA CRUZDOB:2000 ([age] yo F)Acc No.[id number]:12/09/2024 Patient: VIOLETA MILLER :2000 A ge:24 Y S ex:Female Address:[address] [place], [address] Subjective: * Chief Complaints: * E MR-Luis * * Date:
--- OUTSIDE RECORDS SUMMARY | 2024-12-10 03:00 | XMS_ITS ---
Author Organization [facility] Address [address] [place] [address] Care Team Providers Care Subway Train Operator Name Role Phone Adrián Louise Unavailable [phone] Migration, Provider Unavailable Unavailable Allergies Allergen (clinical drug ingredient) Drug/Non Drug Allergy documented on EMR Reaction Allergy Type Onset Date Status Latex Latex Unknown Allergy 08/23/2023 Active REASON FOR VISIT EMR-Luis Medications Medication SIG (Take, Route, Frequency, Duration) Notes Start Date End Date Status Acetaminophen 325 MG Tablet Oral 08/23/2023 Active Liana 24 Fe 1-20 MG-MCG(24) Tablet Chewable Oral 08/23/2023 Active Minastrin 24 Fe 1-20 MG-MCG(24) Tablet Chewable Oral *Reorder from [employer] for eRx and Interaction Alerts* 08/23/2023 Active buPROPion HCl ER (XL) 150 MG Tablet Extended Release 24 Hour Oral 08/23/2023 Active RhoGAM Ultra-Filtered Plus 1500 UNIT Solution Prefilled Syringe Intramuscular 08/23/2023 Active Ibuprofen 600 MG Tablet Oral 08/23/2023 Active Progesterone 200 MG Capsule Oral 08/23/2023 Active Prenatabs Rx 29-1 MG Tablet Oral 08/23/2023 Active Ondansetron 4 MG Tablet Disintegrating Oral 08/23/2023 Active Social History Social History Additional Details Category Social Info Options Details Migrated Social History Migrated Social History Alcohol Intake: None 01/05/2023,Tobacco Years: Never smoker 01/05/2023 Encounters Encounter Location Date Provider Diagnosis [facility] [address] [place] [id number] 12/10/2024 Prov ider Migration Plan Of Treatment No Information Progress Notes * VIOLETA DE LA CRUZDOB:2000 ([age] yo F)Acc No.[id number]:12/10/2024 Patient: VIOLETA MILLER :2000 A ge:24 Y S ex:Female Address:[address] [place] [address] [place], [address] Subjective: * Chief Complaints: * E MR-Luis * Medical History: Problems: ultrasound scan status Anxiety Attention deficit hyperactivity disorder Bipolar disorder Depressive disorder Oligohydramnios Polyuria RhD negative * Backend Developer History: M igrated GynHistory M igrated GYNHistory:: Age at Menarche: 14 Modified Date:01/05/2023,Current Control Method: BCPs Modified Date:08/23/2023,Date of LMP: 08/13/2023 Modified Date:08/23/2023,Date of Last Pap Smear: 10/20/2022 Modified Date:01/05/2023,Duration of Flow (days): 6 Modified Date:01/05/2023,Hormone Replacement Therapy: N Modified Date:01/06/2023,STIs/STDs: Y Modified Date:01/05/2023,Sexual Problems: N Modified Date:01/06/2023,Sexually Active: Y Modified Date:01/05/2023,Was the recent bone density a DEXA or DXA: N . * Family History: M igrated Family History: Unspecified Relation: Family history of diabetes mellitus type 2 , Family history of neoplasm of breast , Heart disease , Hyperlipidemia . * Social History: M igrated Social History: M igrated Social History: Alcohol Intake: None 01/05/2023,Tobacco Years: Never smoker 01/05/2023. * Medications: T akingAcetaminophen 325 MG Tablet Oral Ibuprofen 600 MG Tablet Oral Ondansetron 4 MG Tablet Disintegrating Oral Prenatabs Rx 29-1 MG Tablet Oral Progesterone 200 MG Capsule Oral RhoGAM Ultra-Filtered Plus 1500 UNIT Solution Prefilled Syringe Intramuscular buPROPion HCl ER (XL) 150 MG Tablet Extended Release 24 Hour Oral Minastrin 24 Fe 1-20 MG-MCG(24) Tablet Chewable Oral , Notes to Pharmacist: *Reorder from [employer] for eRx and Interaction Alerts*Liana 24 Fe 1-20 MG-MCG(24) Tablet Chewable Oral Taking Acetaminophen 325 MG Tablet Oral Taking Ibuprofen 600 MG Tablet Oral Taking Ondansetron 4 MG Tablet Disintegrating Oral Taking Prenatabs Rx 29-1 MG Tablet Oral Taking Progesterone 200 MG Capsule Oral Taking RhoGAM Ultra-Filtered Plus 1500 UNIT Solution Prefilled Syringe Intramuscular Taking buPROPion HCl ER (XL) 150 MG Tablet Extended Release 24 Hour Oral Taking Minastrin 24 Fe 1-20 MG-MCG(24) Tablet Chewable Oral , Notes to Pharmacist: *Reorder from [facility] for eRx and Interaction Alerts*Taking Liana 24 Fe 1-20 MG-MCG(24) Tablet Chewable Oral * Allergies: L atex: Allergy - Onset Date 08/23/2023 * * Date:
--- NOTE | ~2025-07-29 | XR_ITS ---
EXAMINATION: XR ankle RT min 3V DATE: 07/29/2025 22:46 INDICATION: Injury TECHNIQUE: Right ankle x-rays were obtained. COMPARISON: None. IMPRESSION: 1. No displaced fracture lucency, subluxation or dislocation seen. 2. No radiopaque suspicious foreign body. Note: Preliminary radiology report provided by [facility] radiologist/physician. Reviewed, dictated and finalized at location A. ENT SAFETY SITTER
--- NOTE | ~2025-07-29 | XR_ITS ---
EXAMINATION: XR foot RT min 3V DATE: 07/29/2025 22:47 INDICATION: Injury TECHNIQUE: Right foot x-rays were obtained. COMPARISON: None. IMPRESSION: 1. No displaced fracture lucency, subluxation or dislocation seen. 2. No radiopaque suspicious foreign body. Note: Preliminary radiology report provided by [facility] radiologist/physician. Reviewed, dictated and finalized at location A. D TESTER FOWL
[2025-07-29 22:33] VITALS: BP 139/97; PULSE 101; RESP 14; TEMP 36.4; O2SAT 100
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
--- OUTSIDE RECORDS SUMMARY | 2025-07-29 22:40 | XMS_ITS | Continuity of Care Document ---
Author Organization [facility] [place] Address [address] [place] [address] Assessment No assessment recorded. Plan of Treatment Reminders Order Date Submit Date Provider Last Modified By Organization Details Last Modified Time Details Appointments None record ed. Lab None record ed. Referral None record ed. Procedures None record ed. Surgeries None record ed. Imaging None record ed. Medication Orders None record ed. Patient TargetsNo targets recorded. Patient InstructionsNo instructions recorded. Reason for Referral None Reported. Results Created Date Observation Date Name Description Value Unit Range Abnormal Flag Note LastModifiedBy Organization Detail LastModifiedTime 06/11/20 25 06/11/2025 US, pelvi s, compl ete No observ ation record ed. [email or web address] Karin [address], [place], [address], 06/12/2025 06:39:03 06/11/2006/11/2025 US, pelvi s, compl ete No observ ation record ed. [email or web address] Karin [address], [place], [address], 06/13/2025 08:29:00 Result Notes None recorded. Procedures Surgical History Date Name Laterality Status Provider Name and Address Organization Details Recorded Time 4 Date of Last Pap Smear completed Kimberly Dia [facility] 06/11/2025 10:28:08 8 total knee replacement completed Kimberly Dia [facility] 06/11/2025 10:32:58 operative procedure on shoulder completed Kimberly Dia [facility] 06/11/2025 10:33:22 Imaging Results None recorded. Procedure Notes None recorded. Medical Equipment None Reported. Allergies Allergen ID Allergen Name Allergen Category Reaction Reaction Severity Criticality Documentation Date Start Date Code Code System Note Provider Name and Address Organization Details Recorded Time 82800 latex environme nt,medica tion Not available Not available Not available 06/11/2025 48513 91 RxNorm [facility] 10:27:26 37565 Dramamine medicatio n Not available Not available Not available 06/11/2025 11634 6 RxNorm Kimberly Dia [facility] 10:27:36 Medications Name Sig Start Date Stop Date Status Note LastModified by Organization Details LastModified Time promethazine 25 mg tablet TAKE 1 TABLET BY MOUTH EVERY 4-6 HOURS NEEDED FOR NAUSEA 06/11 completed Not Available Not Available Not Available ibuprofen 600 mg tablet TAKE 1 TABLET BY MOUTH EVERY 6 HOURS NEEDED FOR PAIN 06/11 completed Not Available Not Available Not Available naproxen 500 mg tablet TAKE 1 TABLET BY MOUTH TWICE A DAY NEEDED FOR PAIN WITH FOOD 06/11 completed Not Available Not Available Not Available norelgestrom in 150 mcg-e.estrad iol 35 mcg/24 hr weekly transderm patch 1 PATCH APPLIED PER WEEK FOR THREE WEEKS AND THEN 1 WEEK OFF active Not Available Not Available No t Available Vitals Date Recorded Body height Body mass index (BMI) Body weight Systolic And Diastolic Provider Name and Address Organization Details Last Updated DateTime 06/11/2025 175.26 cm 19.3 kg/m2 88186.6 g 119/72 mm[Hg] Kimberly Dia [facility] 06/11/2025 10:27:15 Social History Question Answer Notes LastModified by Organizat ion Details LastModified Time Tobacco Smoking Status Never Smoker [facility] 06/11/2025 10:31:30 Are You Blind Or Do You Have Difficulty Seeing? No Information n ot available 06/11/2025 What Is Your Level Of Caffeine Consumption? Occasional Information not available 06/11/2025 In The 14 Days Before Symptom Onset, Have You Had Close Contact With A Laboratory-confirm ed COVID-19 While That Case Was Ill? No Information n ot available 06/11/2025 In The 14 Days Before Symptom Onset, Have You Had Close Contact With A Person Who Is Under Investigation For COVID-19 While That Person Was Ill? No Information not available 06/11/2025 Have You Been To An Area Known To Be High Risk For COVID-19? No Information not available 06/11/2025 Are You Deaf Or Do You Have Serious Difficulty Hearing? No Information not available 06/11/2025 What Type Of Diet Are You Following? REGULAR Information n ot available 06/11/2025 What Is The Highest Grade Or Level Of School You Have Completed Or The Highest Degree You Have Received? [id number] Information not available 06/11/2025 Are There Any Guns Present In Your Home? No Information not available 06/11/2025 Do You Use Your Seat Belt Or Car Seat Routinely? Yes Information not available 06/11/2025 Are You Sexually Active? Yes Information not available 06/11/2025 Do You Have Smoke And Carbon Monoxide Detectors In Your Home? Yes Information not available 06/11/2025 Do You Use Sunscreen Routinely? Yes Information not available 06/11/2025 Do You Have Difficulty Walking Or Climbing Stairs? No Information not available 06/11/2025 Sex: Unknown Functional Status Question Answer Note LastModified by [employer] ion Details LastModified Time Do you use any illicit or recreational drugs? No Information not available 06/11/2025 What is your level of alcohol consumption? None Information not available 06/11/2025 Are you currently employed? Yes Information not available 06/11/2025 Are you able to walk independently without assistance or assistive devices? YESWOREST Information not available 06/11/2025 Are you able to care for yourself independently? Yes Information not available 06/11/2025 Do you have difficulty dressing, bathing, grooming, or toileting? No Information not available 06/11/2025 Mental Status Question Answer Note LastModified by Organization D etails LastModified Time Do you feel stressed (tense, restless, nervous, or anxious, or unable to sleep at night)? [id number] Information not available 06/11/2025 Family History Relationship Description Onset Age of this Age Resolved Age Notes LastModified by Organization Details LastModified Time Maternal Grandmother Malignant neoplasm of breast Not available 2024 10:34:58 Maternal Grandmother Disorder of thyroid gland Not available 2024 10:36:04 Maternal Grandfather Heart disease Not available 2024 10:35:13 Maternal Grandfather Hypercholest erolemia Not available 2024 10:35:25 Maternal Grandfather Hypertensive disorder Not available 2024 10:35:37 Mother Disorder of thyroid gland Not available 2024 10:36:04 Maternal Aunt Disorder of thyroid gland Not available 2024 10:36:04 Medical History Condition Response Allergies (Food, seasonal, environmental ) N Other N Breast Cancer N Drug/Latex Allergies/Reactions N Blood Transfusion N Dermatologic Disorders N Lung Disease N Defects or Inherited Disease N Breast Problem N Gestational Diabetes N Hematologic disorders N Anesthesia Complications N History of STI N Deep Vein Thrombosis N Polycystic ovary syndrome Y Anxiety Disorder N Autoimmune disease N Arthritis N Infertility N Polyps N Acid Reflux (GERD) N History of abnormal pap N Cancer N Stroke N Varicosities N Neurologic/Epilepsy N Endometriosis N High Cholesterol N Headaches N Fibromyalgia N Kidney Disease N Heart Problems N Kidney or Bladder Problems N Thyroid Problems Y GI Problems N Eating Disorder N Anemia N Art (IVF or FET) N Psychiatric Illness N Ovarian Cancer N Diabetes N Pulmonary (TB, Asthma) N Hepatitis/Liver Disease N No Past Medical History N Eczema N Urinary Tract Infection N Abuse/Domestic Violence N Asthma N Trauma/Violence N Depression/ depression N Heart Disease N Pre-Eclampsia N Hypertension N Osteoporosis N Thrombophilias N Gynecological History Statement/Question Response Abnormal Pap N Flow Moderate Date of LMP 04/20/2025 Was last menstrual period normal Y STIs/STDs N HPV Vaccine Y Duration of Flow (days) 6 Current Control Method Age at First Child 23 Are cycles usually normal Y Frequency of Cycle (Q days) 30 Sexually Active? Y Menses Monthly Y Age of first menstrual cycle 14 Date of Last Pap Smear 04/13/2024 Sexual Problems? N LMP Definite Obstetrics History GPAL:G 1 P 1 0 0 1 Type Value Full Term 1 Living 1 Total 1 Past Encounters Encounter ID Performer Location Encounter Start Date Encounter Closed Date Diagnosis/Indication Diagnosis SNOMED-CT Code Diagnosis ICD10 Code Diagnosis IMO Codes Diagnosis Note [id number] Donato Barton MD [place] [address] [address] 06/11/2025 09:50:18 06/18/2025 09:15:05 Pain in pelvis 89491865 R10.2 [id number] Donato Barton MD [place] [address] [address] 06/11/2025 11:08:05 06/11/2025 12:45:21 Health Concerns Section Related Observation LastModified by Organization Detai ls LastModified Time None Recorded Concern Status LastModified by Organization Details LastModified Time None Recorded Payers Encounter Date Sequence Insurance Name Policy Number Policy Schrader Covered Member ID Schrader Member ID Guarantor Name 06/11/2025 1 *SELF PAY* [facility] Notes Date Note Type Note Provider Name and Address Organization Details Recorded Time 06/11/2025 text/html Beer-Pelvic PainReported by Patient Generic HPI TemplateReported by Patient this patient is a 25-year-old female who presents for amenorrhea. She is a positive test. Ultrasound revealed a 1st trimester gestation. Patient has no complaints. We talked about early care. Talked about genetic screening. We talked about her ultrasound results. We talked about the 12 week ultrasound that has genetic screening components. She was given recommendations on exercise, diet, frjj-evp-[id number] medications. We reviewed her obstetric history. We reviewed her medical history. We reviewed her social history. She will begin routine care at her next visit. Donato Barton MD [address], [place], [address], [facility] 06/14/2025 17:50:28 OBGyn Episode No OBEpisode recorded.
--- OUTSIDE RECORDS SUMMARY | 2025-07-29 22:40 | XMS_ITS | Continuity of Care Document ---
Author Organization [facility], [place] Address [address] [place] [address] Assessment Encounter Date Assessment Date Assessment LastModified by Organization Details LastModified Time 06/11/2025 06/11/2025 this patient is a 25-year-old female who presents for amenorrhea. She is a positive test. Ultrasound revealed a 1st trimester gestation. Patient has no complaints. We talked about early care. Talked about genetic screening. We talked about her ultrasound results. We talked about the 12 week ultrasound that has genetic screening components. She was given recommendations on exercise, diet, hglk-vhu-glonbev medications. We reviewed her obstetric history. We reviewed her medical history. We reviewed her social history. She will begin routine care at her next visit. [email or web address] Not available 06/14/2025 17:49:58 Plan of Treatment Reminders Order Date Submit Date Provider Last Modified By Organization Details Last Modified Time Details Appointments None recorded. Lab None recorded. Referral None recorded. Procedures None recorded. Surgeries None recorded. Imaging US, pelvis, complete 2024 025 [email or web address] [id number] Not available 09:15:05 Medication Orders None recorded. Patient TargetsNo targets recorded. Patient InstructionsNo instructions recorded. Reason for Referral None Reported. Results Created Date Observation Date Name Description Value Unit Range Abnormal Flag Note LastModifiedBy Organization Detail LastModifiedTime 06/11/2006/11/2025 nithin RODRIGUEZ compl etsilvestre No observ ation record ed. [email or web address] Karin [address] [facility], [place], [address], 06/12/2025 06:39:03 06/11/20 25 06/11/2025 US, nithin s, compl ete No observ ation record ed. [email or web address] Karin [address], [place], [address], 06/13/2025 08:29:00 Result Notes None recorded. Procedures Surgical History Date Name Laterality Status Provider Name and Address Organization Details Recorded Time 4 Date of Last Pap Smear completed [facility] 06/11/2025 10:28:08 8 total knee replacement completed [facility] 06/11/2025 10:32:58 operative procedure on shoulder completed [facility] 06/11/2025 10:33:22 Imaging Results None recorded. Procedure Notes None recorded. Medical Equipment None Reported. Allergies Allergen ID Allergen Name Allergen Category Reaction Reaction Severity Criticality Documentation Date Start Date Code Code System Note Provider Name and Address Organization Details Recorded Time 02920 latex environme nt,medica tion Not available Not available Not available 06/11/2025 97852 91 RxNorm [facility] 5 10:27:26 42284 Dramamine medicatio n Not available Not available Not available 06/11/2025 23992 6 RxNorm [facility] 5 10:27:36 Medications Name Sig Start Date Stop [...] Updated DateTime 06/11/2025 175.26 cm 19.3 kg/m2 06662.6 g 119/72 mm[Hg] Kimberly South [facility] 06/11/2025 10:27:15 Social History Question Answer Notes LastModified by Organizat ion Details LastModified Time Tobacco Smoking Status Never Smoker Kimberly South [facility], [facility] 06/11/2025 10:31:30 Are You Blind Or [...] Or The Highest Degree You Have Received? [id number] Information not available 06/11/2025 Are There Any [...] Functional Status Question Answer Note LastModified by Organizat ion Details LastModified Time Do you use [...] anxious, or unable to sleep at night)? [id number] Information not available 06/11/2025 Family History Relationship [...] available 2024 10:36:04 Medical History Condition Response Other N Blood Transfusion N Dermatologic Disorders N Gestational Diabetes N Anxiety Disorder N Autoimmune disease N Arthritis N Polyps N Infertility N Acid Reflux (GERD) N Cancer N Varicosities N Stroke N Neurologic/Epilepsy N Fibromyalgia N Headaches N Kidney Disease N Heart Problems N Kidney or Bladder Problems N Eating Disorder N Art (IVF or FET) N Hepatitis/Liver Disease N No Past Medical History N Urinary Tract Infection N Asthma N Trauma/Violence N Thrombophilias N Allergies (Food, seasonal, environmental ) N Breast Cancer N Drug/Latex Allergies/Reactions N Lung Disease N Defects or Inherited Disease N Breast Problem N Hematologic disorders N Anesthesia Complications N History of STI N Deep Vein Thrombosis N Polycystic ovary syndrome Y History of abnormal pap N Endometriosis N High Cholesterol N Thyroid Problems Y GI Problems N Anemia N Psychiatric Illness N Ovarian Cancer N Diabetes N Pulmonary (TB, Asthma) N Eczema N Abuse/Domestic Violence N Depression/ depression N Heart Disease N Pre-Eclampsia N Hypertension N Osteoporosis N Gynecological History Statement/Question Response Abnormal Pap [...] ICD10 Code Diagnosis IMO Codes Diagnosis Note [id number] Donato Barton MD [place] [address] [address] 06/11/2025 09:50:18 06/18/2025 09:15:05 Pain in pelvis [id number] R10.2 [id number] MD Anila Church [address] [address] 06/11/2025 11:08:05 06/11/2025 12:45:21 Health Concerns Section Related Observation LastModified by Organization Detai ls LastModified Time None Recorded Concern Status LastModified by Organization Details LastModified Time None Recorded Payers Encounter Date Sequence Insurance Name Policy Number Policy Schrader Covered Member ID Schrader Member ID Guarantor Name 06/11/2025 1 *SELF PAY* [facility] Notes Date Note Type Note Provider Name and Address Organization Details Recorded Time 06/11/2025 text/html Mick-Pelvic PainReported by Patient Generic HPI TemplateReported by [...] She was given recommendations on exercise, diet, ndqz-juh-yyuvlaf medications. We reviewed her obstetric history. We reviewed her medical history. We reviewed her social history. She will begin routine care at her next visit. Donato Barton MD [address], [place], [address], [facility] 06/14/2025 17:50:28 OBGyn Episode No OBEpisode recorded.
--- OUTSIDE RECORDS SUMMARY | 2025-07-29 22:40 | XMS_ITS | Clinical Summary ---
Author Organization [facility] Address [address] [place] [address] Phone Care Team Providers Care Milling Operator Name Role Phone Unavailable Primary Care [...] Advance Directives For more information, please contact: [phone] * Full Code (Latest Code Status on [...]
--- OUTSIDE RECORDS SUMMARY | 2025-07-29 22:41 | XMS_ITS | Data Portability ---
Author Organization [facility], [place] Address [address] [place] [address] Assessment Encounter Date Assessment Date Assessment LastModified [...] She was given recommendations on exercise, diet, pthf-eyj-hnckmuy medications. We reviewed her obstetric history. We [...] recorded. Imaging US, pelvis, complete 2024 025 [email or web address] Not available 09:15:05 Medication Orders None recorded. Patient TargetsNo targets recorded. Patient InstructionsNo instructions recorded. Reason for Referral None Reported. Results Created Date Observation Date Name Description Value Unit Range Abnormal Flag Note LastModifiedBy Organization Detail LastModifiedTime 06/11/2006/11/2025 nithin RODRIGUEZ compl ete No observ ation record ed. [email or web address] Karin [address] [place] [address], [place], [address], 06/12/2025 06:39:03 06/11/20 25 06/11/2025 US, nithin s, compl ete No observ ation record ed. [email or web address] Karin [address], [place], [address], 06/13/2025 08:29:00 Result Notes None recorded. Procedures Surgical History Date Name Laterality Status Provider Name and Address Organization Details Recorded Time 4 Date of Last Pap Smear completed [facility] 06/11/2025 10:28:08 8 total knee replacement completed [facility] 06/11/2025 10:32:58 operative procedure on shoulder completed [facility] 06/11/2025 10:33:22 Imaging Results None recorded. Procedure Notes None recorded. Medical Equipment None Reported. Allergies Allergen ID Allergen Name Allergen Category Reaction Reaction Severity Criticality Documentation Date Start Date Code Code System Note Provider Name and Address Organization Details Recorded Time 15982 latex environme nt,medica tion Not available Not available Not available 06/11/2025 95934 91 RxNorm [facility] 5 10:27:26 37135 Dramamine medicatio n Not available Not available Not available 06/11/2025 74361 6 RxNorm [facility] 5 10:27:36 Medications Name Sig Start [...] Updated DateTime 06/11/2025 175.26 cm 19.3 kg/m2 88472.6 g 119/72 mm[Hg] Kimberly South [facility] 06/11/2025 10:27:15 Social History Question Answer Notes LastModified by Organizat ion Details LastModified Time Tobacco Smoking Status Never Smoker Kimberly South [facility], [facility] 06/11/2025 10:31:30 Are You Blind [...] Or The Highest Degree You Have Received? [id number] Information not available 06/11/2025 Are There Any [...] anxious, or unable to sleep at night)? [id number] Information not available 06/11/2025 Family History Relationship [...] ICD10 Code Diagnosis IMO Codes Diagnosis Note [id number] Donato Barton MD [place] [address] [address] 06/11/2025 09:50:18 06/18/2025 09:15:05 Pain in pelvis [id number] R10.2 [id number] Donato Barton MD [place] [address] [address] 06/11/2025 11:08:05 06/11/2025 12:45:21 Health Concerns Section Related Observation LastModified by Organization Detai ls LastModified Time None Recorded Concern Status LastModified by Organization Details LastModified Time None Recorded Advance Directives Directive None Recorded Payers Insurance Date Sequence Insurance Name Policy Number Policy Schrader Covered Member ID Schrader Member ID Guarantor Name 06/11/2025 1 *SELF PAY* [facility] Notes Date Note Type Note Provider [...] She was given recommendations on exercise, diet, fsqs-sma-wnekcbf medications. We reviewed her obstetric history. We reviewed her medical history. We reviewed her social history. She will begin routine care at her next visit. Donato Barton MD [address], [place], [address], [facility] 06/14/2025 17:50:28 OBGyn Episode Ob Episode Information Episode Created Date Number of Fetuses Patient Bloodtype Patient rh Status Prepregnancy Weight lbs Domestic Partner Domestic Partner Phone Father Name Mva Reactor Operator Status 06/11/20 25 1 CLOSED Fetus Data First Name Last Name Admitted to NICU Weight (g) Sex Living Outcome Pediatric Complications Fetus ID Race Codes Race Delivery Type 2976.47 0704 F Full Term [id number] Vaginal Delivery Solomon Calculation Initial Solomon Date Initial Exam Date Initial Exam Provider Initial Ultrasound Date Last Menstrual Period Date Ultra Sound Weeks Gestation 0 Eighteen To Twenty Week Solomon Update Ultra Sound Date Fundal Height At Umbil Quickening Date Ultra Sound Latest Weeks Gestation Final Solomon Confirmed By Final Solomon Confirmed Date Final Solomon Date Ultra Sound Latest Days Gestation 0 0 Menstrual History Last Menstrual Date Menses Monthly On Bcp Conception Prior Menses Frequency Hcg Plus Date Menarche Onset Age Delivery Information Delivery Date Delivery Type Labor Anesthesia Weeks Gestation Incision Type Labor Labor Length Hrs Delivered By Post Complications Tubal Sterilization Discharge Date Comments 3 39 Discharge Information Feeding Method Contraceptive Method Maternal HG B and HCT Levels
--- NOTE | 2025-07-29 22:58 | ED_ITS ---
HPI - Extremity Injury (Lower) General Chief Complaint: Extremity Injury, Lower Stated Complaint: R Foot Injury Source: patient Mode of arrival: ambulatory Limitations: no limitations History of Present Illness HPI Narrative: Patient is a 25-year-old female with a right foot and ankle injury after kicking a pumpkin last night. This was an accident. She did a full force kick to the pumpkin however and sustained injury. No no other injuries. MD complaint: ankle injury (Right) and foot injury (Right) Onset (ago): day(s) (1) Type of Injury: blunt Place: home Severity: moderate Severity scale (1-10): 5 Relieving factors: NSAID, immobilization and rest Exacerbating factors: weight bearing, movement and palpation Context: direct blow Associated symptoms: swelling, tingling and able to partially bear weight Other symptoms: none Treatments prior to arrival: NSAIDS Related Data Home Medications ?Medication ?Instructions ?Recorded ?Confirmed ?Last Taken ?Type No Home Medications 06/20/24 06/20/24 U nknown History Allergies Allergy/AdvReac Type Severity Reaction Status Date / Time hydromorphone Allergy Unknown Hives Verified 06/08/25 18:11 latex Allergy Unknown Hives Verified 06/08/25 18:11 dimenhydrinate (From Allergy Rash Verified 06/08/25 18:11 Dramamine) Review of Systems Review of Systems: All systems reviewed & are unremarkable except as noted in HPI and below Constitutional: Constitutional: Reports no additional constitutional complaints Eyes: Eyes: Reports no additional eye complaints ENT: Reports system reviewed and no additional complaints, except as documented Cardiovascular: Cardiovascular: Reports no additional cardiovascular complaints Respiratory: Respiratory: Reports no additional respiratory complaints Gastrointestinal: Gastrointestinal: Reports no additional gastrointestinal complaints Genitourinary: Genitourinary: Reports no additional female genitourinary complaints Musculoskeletal: Musculoskeletal: Reports no additional musculoskeletal complaints Integumentary/Breasts: Skin/Breast: Reports system reviewed and no additional complaints, except as docu Neurologic: Reports system reviewed and no additional complaints, except as documented Psychiatric: Psychiatric: Reports no additional psychiatric complaints Endocrine: Endocrine: Reports no additional endocrine complaints Hematologic/Lymphatic: Hematologic/Lymphatic: Reports no additional hematologic/lymphatic complaints Allergic/Immunologic: Allergic/Immunologic: Reports no additional allergic/immunologic complaints PMFSH Past Medical History Medical History Bipolar 1 disorder, mixed Anxiety Family History Family History Grandparent Depression Family history of glaucoma Hypertension Family history of elevated blood lipids Family history of cardiovascular disease Mother Family history of bipolar disorder Social History Social History Smoking status: Never smoker Second hand tobacco smoke exposure: No Alcohol intake: never Gender identity (if verbalized by the patient): Female Exam Const: General: healthy appearing Nutritional Appearance: well nourished Orientation/consciousness: patient oriented x3 HENMT: Head: normal to inspection Ears: external ears normal Face/Nose/Sinus: Normal external nose present Eyes: Conjunctivae: conjunctivae normal Pupils: Equal, round and reactive pupils present EOM: EOMs intact bilaterally Neck: Neck: normal visual inspection Chest: Chest palpation & inspection: normal inspection of the chest Resp: Effort & Inspection: normal respiratory effort and not labored Auscultation: clear to auscultation bilaterally and no crackles Cardio: Rate: regular rate Rhythm: regular rhythm Heart sounds: no murmurs GI: Inspection: non-distended GI Palp: Yes Soft to palpation and No Ten derness to palpation present (GI) Auscultation: normal bowel sounds : General: Yes bladder normal to palpation Back/Spine/Pelvis: Back: no CVA tenderness Skin: General skin exam: No normal color Rashes: no rashes Wounds: no wounds Other: Bruising on the top/dorsum of the right foot medial aspect Neuro: General: patient oriented x3, moves all extremities and no meningeal signs Cranial nerves: Yes Nystagmus not present Speech: normal speech Gait exam (Neuro): gait abnormal (Difficulty due to right foot pain) Extrem: General: normal to inspection, no clubbing, cyanosis or edema and no pedal edema Other: Tender right ankle medial aspect more so than lateral aspect; tender right foot medial to midfoot dorsal aspect Psych: Mental Status: mental status grossly normal Affect: normal affect Attitude: cooperative Course Vital Signs Vital signs: Vital Signs Temperature 36.4 C 07/29/25 22:33 Pulse Rate 101 H 07/29/25 22:33 Respiratory Rate 14 07/29/25 22:33 Blood Pressure 139/97 H 07/29/25 22:33 Pulse Oximetry 100 07/29/25 22:33 Oxygen Delivery Room Air 07/29/25 22:33 Temperature 36.4 C 07/29/25 22:33 Pulse Rate 101 H 07/29/25 22:33 Respiratory Rate 14 07/29/25 22:33 Blood Pressure 139/97 H 07/29/25 22:33 Pulse Oximetry 100 07/29/25 22:33 Oxygen Delivery Room Air 07/29/25 22:33 MDM - Extremity Injury (Lower) MDM Narrative Medical decision making narrative: Patient is a 25-year-old female with a right foot and ankle injury after kicking a pumpkin last night. X-rays. Toradol. Imaging Data Attestation: I personally reviewed and interpreted this imaging study as follows: Radiologist's impression: X-ray right foot is negative for acute process X-ray right ankle is negative for acute process Discharge Plan Discharge Clinical Impression: Contusion of foot, right Qualifiers: Encounter type: initial encounter Qualified Code(s): S90.31XA - Contusion of right foot, initial encounter Right ankle sprain Qualifiers: Encounter type: initial encounter Involved ligament of ankle: unspecified ligament Qualified Code(s): S93.401A - Sprain of unspecified ligament of right ankle, initial encounter Patient Disposition: Home Condition: Stable Instructions: Ankle Sprain (ED), Foot Contusion (ED) Additional Instructions: Please follow-up rest, ice, compression and elevation. Ibuprofen and Tylenol as needed. Patient Language: Yoruba Prescriptions: No Action No Home Medications Follow-up/Referrals: PHYSICIAN,FIELD REPRESENTATIVE [Primary Care Provider, Internal Medicine] Time of Disposition: 23:28
[2025-07-29] MEDS: KETOROLAC (*BKC) 60 MG/2 ML VIAL IM (23:12)
[2025-07-29 23:37] VITALS: BP 134/78; PULSE 84; RESP 16; O2SAT 100
== END 2025-07-29 23:37 | disposition home or self-care (01) ==
PROVIDERS: Emergency Provider Emergency Medicine; Referring Provider Family Medicine
DX: S90.31XA Contusion of right foot, initial encounter (principal); S93.401A Sprain of unspecified ligament of right ankle, initial encounter; W22.09XA Striking against other stationary object, initial encounter
CPT/HCPCS: 29515; 73610; 73630; 96372; 99283; J1885; L4350